=== PATIENT | female | born 1930 | race Caucasian/White ===

== ENCOUNTER 2016-12-04 14:09 | Outpatient (CLI) | payer MEDICARE, OTHER ==
--- NOTE | 2016-12-04 16:56 | XRAY Report ---
THREE VIEW LEFT ANKLE: 12/04/2016 CLINICAL INDICATION: Pain, swelling. FINDINGS: AP, lateral, and oblique views of the left ankle demonstrate degenerative changes. There i s no evidence of acute fracture. No effusion is seen. Plantar calcaneal spurring is present, and like ly pes planus is present. IMPRESSION: DEGENERATIVE CHANGES. NO EVIDENCE OF ACUTE FRACTURE. JOB #: [id number] EXT JOB #:[id number]
== END 2016-12-04 14:10 | disposition home or self-care (01) ==
LOC: DI.S 14:09
PROVIDERS: ATTEND Podiatrist
DX: M19.072 Primary osteoarthritis, left ankle and foot (principal)

== ENCOUNTER 2017-09-09 13:09 | Outpatient (CLI) | payer MEDICARE, OTHER | END 2017-09-09 13:10 | disposition home or self-care (01) | LOC: LAB.F 13:09 | PROVIDERS: ATTEND Family Medicine | DX: Z53.9 Procedure and treatment not carried out, unspecified reason (principal) ==

== ENCOUNTER 2017-09-15 12:38 | Outpatient (CLI) | payer MEDICARE, OTHER ==
[2017-09-15 17:41] LABS: BASOPHILS % (AUTO) 0.3 %; EOSINOPHILS # (AUTO) 0.1 10^3/uL (0.0-0.7); EOSINOPHILS % (AUTO) 3.2 %; HGB - HEMOGLOBIN 14.2 g/dL (12.0-16.0); LYMPHOCYTES # (AUTO) 0.8 10^3/uL (1.5-3.5); MEAN CORPUSCULAR HEMOGLOBIN 28.7 pg (27.0-31.0); MEAN CORPUSCULAR HGB CONC 32.4 g/dL (32.0-36.0); MEAN CORPUSCULAR VOLUME 88.6 fL (81.0-99.0); MEAN PLATELET VOLUME 8.7 fL (7.9-10.8); MONOCYTES # (AUTO) 0.5 10^3/uL (0.0-1.0); MONOCYTES % (AUTO) 11.2 %; NEUTROPHILS % (AUTO) 66.3 %; PLT - PLATELET COUNT 173 10^3/uL (130-450); RED BLOOD COUNT 4.94 10^6/uL (4.20-5.40); RED CELL DISTRIBUTION WIDTH 13.1 % (12.0-15.0); WHITE BLOOD COUNT 4.5 x10^3/uL (4.8-10.8)
[2017-09-15 18:03] LABS: ALBUMIN 4.4 g/dL (3.2-5.5); ALBUMIN/GLOBULIN RATIO 1.6 (1.0-2.2); ALKALINE PHOSPHATASE 75 IU/L (42-121); ALT ALANINE AMINOTRANSFERASE 20 IU/L (10-60); AST ASPARTATE AMINOTRANSFERASE 24 IU/L (10-42); BILIRUBIN,TOTAL 0.9 mg/dL (0.2-1.0); BUN - BLOOD UREA NITROGEN 15 mg/dL (6-20); CARBON DIOXIDE - CO2 25 mmol/L (21-32); CHLORIDE 104 mmol/L (101-111); CHOL/HDL RATIO 3.5 (<4.4); CHOLESTEROL 183 mg/dL; CREATININE 0.8 mg/dL (0.4-1.0); GFR - MDRD 68 (>89); GLUCOSE 93 mg/dL (70-100); HDL CHOLESTEROL 53 mg/dL; LDL CHOLESTEROL,CALCULATED 106 mg/dL; SODIUM 138 mmol/L (135-145); TOTAL PROTEIN 7.1 g/dL (6.7-8.2); VLDL CHOLESTEROL 24 mg/dL
== END 2017-09-15 12:39 | disposition home or self-care (01) ==
LOC: LAB.F 12:38
PROVIDERS: ATTEND Family Medicine
DX: I10 Essential (primary) hypertension (principal); I25.10 Atherosclerotic heart disease of native coronary artery without angina pectoris; I50.9 Heart failure, unspecified
CPT/HCPCS: 36415; 80053; 80061; 83721; 85025

== ENCOUNTER 2018-07-29 12:07 | Outpatient (CLI) | payer MEDICARE, OTHER ==
--- NOTE | 2018-07-29 15:13 | XRAY Report ---
Reason: LOW BACK PAIN Procedure Date: 07/29/2018 Accession Number: [id number] / [id number] Procedure: XR - Lumbar Spine 2 View CPT Code: FULL RESULT: EXAM: LUMBOSACRAL SPINE RADIOGRAPHY EXAM DATE: 07/29/2018 12:33 PM. CLINICAL HISTORY: Low back pain. COMPARISONS: LUMBAR SPINE COMPLETE 04/16/2015 3:06 PM. TECHNIQUE: 3 views. FINDINGS: Alignment: Normal. No spondylolisthesis or scoliosis. Bones: Five [id number] lumbar vertebral bodies are present. No fractures or bone lesions. Disks: Advanced loss of disk space height with disk osteophyte complex formation essentially at all levels, progressed compared to 2014. Facets: Mild to moderate facet arthropathy throughout the lumbar spine, more severe at L5 and L4. Sacroiliac Joints: Unremarkable. Soft Tissues: Extensive aortic calcifications. 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 [facility]
== END 2018-07-29 12:08 | disposition home or self-care (01) ==
LOC: DI 12:07
PROVIDERS: ATTEND Physician Assistant Medical
DX: M51.36 Other intervertebral disc degeneration, lumbar region (principal); M47.9 Spondylosis, unspecified
CPT/HCPCS: 72100

== ENCOUNTER 2018-09-15 12:19 | Outpatient (CLI) | payer MEDICARE, OTHER ==
--- NOTE | 2018-09-15 16:06 | XRAY Report ---
Reason: PAIN IN JOINTS OF LEFT HAND Procedure Date: 09/15/2018 Accession Number: [id number] / [id number] Procedure: XR - Hand 3 View LT CPT Code: FULL RESULT: EXAM: LEFT HAND RADIOGRAPHY EXAM DATE: 09/15/2018 12:45 PM. CLINICAL HISTORY: Pain in joints of left hand. COMPARISON: None. TECHNIQUE: 3 views. FINDINGS: Bones: No acute fracture appreciated. There is a well-corticated 6 mm osseous body anterior to the first carpometacarpal joint perhaps a remote osteophyte. A similar well-corticated body is noted dorsal to the radial carpal row, again possibly remote fractured osteophyte. Joints: There is at least moderate degenerative productive arthritis and joint space narrowing of the IP and DIP joints of the digits. Degenerative sclerosis is noted at the base of thumb. Soft Tissues: Normal. No soft tissue swelling. 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 RADIA
== END 2018-09-15 12:20 | disposition home or self-care (01) ==
LOC: DI 12:19
PROVIDERS: ATTEND Physician Assistant Medical
DX: M19.042 Primary osteoarthritis, left hand (principal)